=== PATIENT | male | born 1970 | race Caucasian/White ===

== ENCOUNTER 2021-10-29 04:23 | Emergency (ER) | payer BC ==
[~2021-10-29] VITALS: Ht 182.9 cm; Wt 122.6 kg
--- NOTE | 2021-10-29 04:33 | PHYS DOC ---
Past History Past Medical History: A-Fib Past Medical History History of gout. (GABRIELLA EVANS MD) General Adult EDM: Chief Complaint: DIZZY/LIGHT HEADED HPI: HPI: ". I an feeling really bad.. I think I am in Afib again.. and my BP is up....". I had Afib.. before.. I was on Cardizem in the past.. but they took me ovff of it....Hey..I just think I converted ... " Patient is a 51 year old male who presents with complaints of tachycardia and dizzy feeling. Pt. initial EKG shows A. fib with a rapid ventricular response. Monitor heart rate ranging from 120s to 150s. Patient states he has had A. fib in the past. Has had spontaneous conversions with fluid boluses. Has had need of Cardizem in the past to claribel or slow his rhythm. Patient denies any fever or chills. No recent travel. No severe ill contacts. No changes in meds. Patient no longer on Cardizem which he was taking for his A. fib and hypertension. Patient does have elevated blood pressure currently 150s 160s systolic over 110s diastolics readings. Does have a history of gout. Patient denies any excessive use of caffeine. Normally follows with Dr. Miranda. (GABRIELLA EVANS MD) Review of Systems: Review of Systems: Constitutional: Denies fever or chills Eyes: Denies change in visual acuity HENT: Denies nasal congestion or sore throat Respiratory: Denies cough or shortness of breath Cardiovascular: Complains of A. fib and tachycardia GI: Denies abdominal pain, nausea, vomiting, bloody stools or diarrhea : Denies dysuria Musculoskeletal: Denies back pain or joint pain Integument: Denies rash Neurologic: Denies headache, focal weakness or sensory changes Endocrine: Denies polyuria or polydipsia Lymphatic: Denies swollen glands Psychiatric: Denies depression or anxiety (GABRIELLA EVANS MD) Family History: Family History: Noncontributory to presentation (GABRIELLA EVANS MD) Current Medications: Current Meds: See nursing for home meds (GABRIELLA EVANS MD) Allergies: Allergies: Allergic to morphine-because of the red area where he is injected (GABRIELLA EVANS MD) Physical Exam: PE: Constitutional: mild distress, non-toxic appearance. [] HENT: Normocephalic, atraumatic, bilateral external ears normal, oropharynx moist, no oral exudates, nose normal. [] Eyes: PERRLA, EOMI, conjunctiva normal, no discharge. [] Neck: Normal range of motion, no tenderness, supple, no stridor. [] Cardiovascular: A. fib with rapid ventricular response, irregularly irregular, no murmur [] PMI to the left Lungs & Thorax: Bilateral breath sounds equal apex on auscultation [] Abdomen: Bowel sounds normal, soft, no tenderness, no masses, no pulsatile masses. Obese. Skin: Warm, dry, no erythema, no rash. [] Back: No tenderness, no CVA tenderness. [] Extremities: No tenderness, no cyanosis, no clubbing, ROM intact, no edema. [] Neurologic: Alert and oriented X 3, normal motor function, normal sensory function, no focal deficits noted. [] DTRs are +2 patella and brachial. Ambulatory without problems. Patient Admitting Representative equal. No drift. [id number]. Psychologic: Affect normal, judgement normal, mood normal. [] No cording appreciated (GABRIELLA EVANS MD) EKG: EKG: EKG #1 shows A. fib at a heart rate of 119. Time of EKG 432 EKG #2 shows a sinus rhythm with leftward axis. Sinus rate of 79 bpm. A. fib has resolved. Time of EKG 450 [] (GABRIELLA EVANS MD) Radiology/Procedures: Radiology/Procedures: [][place] [address] IMAGING REPORT Signed PATIENT: KIRIT BOJORQUEZ ACCOUNT: [id number] : 1970 LOCATION: ER AGE: 51 SEX: M EXAM STATUS: REG ER ORD. PHYSICIAN: GABRIELLA EVANS MD REASON: CP, HX AFIB RVR PROCEDURE: PORTABLE CHEST 1V EXAMINATION: Chest radiograph. VIEWS: 1 COMPARISON: None INDICATION:51 years, Male, chest pain. FINDINGS: Normal cardiomediastinal silhouette. No focal consolidation. No pleural effusion or pneumothorax. No acute osseous process. IMPRESSION: No acute cardiopulmonary process. Electronically signed by: Akash To MD (10/29/2021 5:27 AM) [facility] DICTATED AND SIGNED BY: AKASH TO MD DATE: 10/29/21 0526 CC: GABRIELLA EVANS MD; NON,STAFF ~MTH0 0 (GABRIELLA EVANS MD) Heart Score: C/O Chest Pain: No HEART Score for Chest Pain: HEART Score for Chest Pain Response (Comments) Value History Moderately Suspicious 1 ECG Nonspecific Repolarizatio 1 Age >45 - < 65 1 Risk Factors 1 or 2 Risk Factors 1 Troponin < Normal Limit 0 Total 4 Risk Factors: Risk Factors: DM, Current or recent (<one month) smoker, HTN, HLP, family history of CAD, obesity. Risk Scores: Score 0 - 3: 2.5% MACE over next 6 weeks - Discharge Home Score 4 - 6: 20.3% MACE over next 6 weeks - Admit for Clinical Observation Score 7 - 10: 72.7% MACE over next 6 weeks - Early Invasive Strategies (GABRIELLA EVANS MD) Course & Med Decision Making: Course & Med Decision Making Pertinent Labs and Imaging studies reviewed. (See chart for details) Pt. spontaneously converted during blood draws and inital elevation. Labs pending at shift change. Patient endorsed to at shift change. Impression: 1. Afib.with Rapid ventricular response 2. COVID+ 3. Hypertension [] (GABRIELLA EVANS MD) Course & Med Decision Making Assumed care from Dr. Evans at 0630. Patient remained in stable condition in normal sinus rhythm, with no complaints. BP mildly elevated, last 142/93 mmHg. Labs show no significant abnormality. Patient tested positive for covid-19, recent infection in early Sep but was not tested at that time. Patient comfortable with d/c home to follow up with PCP on Sunday. Will resume cardizem 120 mg daily for now, has had side effects in the past so monitor HR/BP closely, follow up PCP, & establish care with cardiology as soon as possible - will see [facility]. Return to the ED for severe chest pain, shortness of breath, dizziness, palpitations, any otherwise worsening condition. Discharged home in improved condition. (ROXANN HUTCHISON MD) Dragon Disclaimer: Dragon Disclaimer: This electronic medical record was generated, in whole or in part, using a voice recognition dictation system. (GABRIELLA EVANS MD) Departure Departure: Scripts Diltiazem Hcl (DILTIAZEM 24HR CD) 120 Mg Cap.er.24h 1 CAP PO DAILY for atrial fibrillation for 14 Days, #14 CAP 0 Refills Prov: ROXANN HUTCHISON MD 10/29/21 Dragon Disclaimer This chart was dictated in whole or in part using Voice Recognition software in a busy, high-work load, and often noisy Emergency Department environment. It may contain unintended and wholly unrecognized errors or omissions. (GABRIELLA EVANS MD) Dragon Disclaimer This chart was dictated in whole or in part using Voice Recognition software in a busy, high-work load, and often noisy Emergency Department environment. It may contain unintended and wholly unrecognized errors or omissions. (GABRIELLA EVANS MD) GABRIELLA EVANS MD Oct 29, 2021 04:33 ROXANN HUTCHISON MD Oct 29, 2021 07:13
[2021-10-29] MEDS ORDERED: ALLO100T PO (04:41)
[2021-10-29] MEDS ORDERED: COLC0.6T45 PO (04:42)
[2021-10-29] MEDS ORDERED: IV RINGERS SOLUTION,LACTATED 1,000 ML IV SCH (05:00)
[2021-10-29] MEDS ORDERED: dilTIAZem 25 MG/5 ML VIAL IVP ONE (05:00)
[2021-10-29] MEDS ORDERED: ASPIRIN CHEWABLE 81 MG TABLET. PO ONE (05:00)
[2021-10-29] MEDS ORDERED: ENOXAPARIN ** NOTE DOSE ** SYRINGE SQ ONE (05:00)
[2021-10-29] MEDS ORDERED: dilTIAZem VIAL 125 MG in IV NORMAL SALINE 100ML 100 ML IV ONE (05:00)
[2021-10-29 05:25] VITALS: BP 147/91
--- NOTE | 2021-10-29 05:30 | RAD ---
EXAMINATION: Chest radiograph. VIEWS: 1 COMPARISON: None INDICATION:51 years, Male, chest pain. FINDINGS: Normal cardiomediastinal silhouette. No focal consolidation. No pleural effusion or pneumothorax. No acute osseous process. IMPRESSION: No acute cardiopulmonary process. Electronically signed by: Cathy To MD (10/29/2021 5:27 AM) [facility]
--- NOTE | 2021-10-29 05:57 | EKG ---
[address] [address] Test Date: 2021-10-29 Test Time: 04:50:24 Pat Name: KIRIT BOJORUQEZ Department: Room: Gender: M [employer]: 6 : 1970 Requested By: GABRIELLA ROWAN Order Number: [id number] Reading MD: Oli Morris Measurements Intervals [place] Rate: 79 P: 56 [place]: 158 QRS: -3 QRSD: 86 T: 35 QT: 356 QTc: 414 Interpretive Statements SINUS RHYTHM LEFTWARD AXIS Electronically Signed On 10-29-2021 18:27:39 CHARTER PILOT by Oli Morris
--- NOTE | 2021-10-29 05:58 | EKG ---
[address] [address] Test Date: 2021-10-29 Test Time: 04:32:10 Pat Name: KIRIT BOJORQUEZ Department: Room: Gender: M [employer]: 6 : 1970 Requested By: GABRIELLA ROWAN Order Number: [id number] Reading MD: Oli Morris Measurements Intervals [place] Rate: 119 P: [place]: QRS: 21 QRSD: 90 T: 31 QT: 324 QTc: 463 Interpretive Statements ATRIAL FIBRILLATION WITH RVR Electronically Signed On 10-29-2021 18:28:26 DEVULCANIZER CHARGER by Oli Morris
[2021-10-29 05:59] LABS: BASO % 1 % (0-3); EOS # 0.2 x10^3/uL (0.0-0.7); EOS % 3 % (0-3); HEMATOCRIT 41.3 % (39.0-53.0); HEMOGLOBIN 14.1 g/dL (13.0-17.5); LYMPH # 1.2 x10^3/uL (1.0-4.8); LYMPH % 22 % (24-48); MEAN CORPUSCULAR HEMOGLOBIN 32 pg (25-35); MEAN CORPUSCULAR HGB CONC 34 g/dL (31-37); MEAN CORPUSCULAR VOLUME 93 fL (79-100); MONO # 0.6 x10^3/uL (0.0-1.1); MONO % 12 % (0-9); NEUT # 3.4 x10^3uL (1.8-7.7); NEUT % 62 % (31-73); PLATELET COUNT 169 x10^3/uL (140-400); RED BLOOD COUNT 4.44 x10^6/uL (4.30-5.70); RED CELL DISTRIBUTION WIDTH 13.2 % (11.5-14.5); WHITE BLOOD COUNT 5.5 x10^3/uL (4.0-11.0)
[2021-10-29 06:12] LABS: INFLUENZA A PATIENT NEGATIVE (NEGATIVE); INFLUENZA B PATIENT NEGATIVE (NEGATIVE)
[2021-10-29 06:19] LABS: BARBITURATES NEG (NEG); BENZODIAZEPINES NEG (NEG); CANNABINOIDS NEG (NEG); COCAINE NEG (NEG); METHADONE NEG (NEG); OPIATES NEG (NEG); PHENCYCLIDINE NEG (NEG)
[2021-10-29 06:21] LABS: CALCIUM 8.7 mg/dL (8.5-10.1); CREATININE 0.9 mg/dL (0.7-1.3); GFR 88.6; POTASSIUM 3.7 mmol/L (3.5-5.1)
[2021-10-29 06:21] LABS: AMPHETAMINE/METHAMPHETAMINE NEG (NEG)
[2021-10-29 06:32] LABS: BACTERIA,URINE 0 /HPF (0-FEW); CLARITY,URINE CLEAR; COLOR,URINE YELLOW; GLUCOSE,URINE NEG (NEG); NITRITE,URINE NEG (NEG); RBC,URINE 0 /HPF (0-2); SQUAMOUS EPITHELIAL CELL,UR OCC /LPF; UROBILINOGEN,URINE 0.2 mg/dL (0.2 mg/dL); WBC,URINE 0 /HPF (0-4)
[2021-10-29 06:34] LABS: ALBUMIN 3.5 g/dL (3.4-5.0); DIRECT BILIRUBIN 0.1 mg/dL (0.0-0.2); MAGNESIUM 1.9 mg/dL (1.8-2.4); TOTAL BILIRUBIN 0.5 mg/dL (0.2-1.0); TOTAL PROTEIN 7.2 g/dL (6.4-8.2)
[2021-10-29] MEDS ORDERED: DILT120C99 PO (07:08)
== END 2021-10-29 07:19 | disposition home or self-care (01) ==
LOC: ER 04:23
DX: U07.1 COVID-19 (principal); I48.20 Chronic atrial fibrillation, unspecified; I10 Essential (primary) hypertension; Z88.5 Allergy status to narcotic agent
CPT/HCPCS: 36415; 71045; 80048; 80076; 80307; 81001; 82550; 83690; 83735; 83880; 84443; 84484; 84550; 85025; 85379; 85610; 85730; 87428; 93005; 96360; 96361; 96372; 99285; J1650; J7120